=== PATIENT | female | born 1995 | race Two or more races ===

== ENCOUNTER → 2024-02-04 | Outpatient (CLI) | payer OTHER, MEDICAID, SELFPAY ==
[2024-02-03 15:26] LABS: HCG Qualitative,Urine Negative
--- NOTE | 2024-02-04 10:00 | XR_ITS ---
Examination: MRI abdomen with intravenous contrast. MRI abdomen without intravenous contrast. Date and time of exam: February 04, 2024 10:11 AM Indications: CT abdomen pelvis 11/17/2023 multiple enhancing liver lesions Technique: Multiple axial, sagittal and coronal sections of the abdomen obtained. Transverse images, TR 6020, TE 107. T1 weighted transverse images, TR 582, TE 9.5. T2-weighted sagittal images, TR 4000, TE 105. T2-weighted sagittal images, TR 4000, TE 5. Coronal images, TR 4210, TE 107. Axial and coronal images are obtained post 19 cc gadolinium Findings: Mildly hyperintense liver lesions which demonstrate uniform enhancement, on the postcontrast images, the largest lesions in the posterior right lobe liver measuring 21 mm, 18 mm an anterior left lobe of the liver 6 mm No pancreatic mass Spleen not enlarged No hydronephrosis Contracted gallbladder No ascites No abdominal lymphadenopathy Impression: Liver lesions as above, differential would include hepatic adenomas, areas of focal nodular hyperplasia, malignant lesions less likely but not excluded With this study as baseline, recommend 3-6 month follow-up MRI abdomen pelvis intravenous contrast
== END | disposition home or self-care (01) ==
PROVIDERS: PCP Family Medicine; Referring Provider Family Medicine; Visit Provider Family Medicine
DX: K76.9 Liver disease, unspecified (principal); Z32.00 Encounter for pregnancy test, result unknown
CPT/HCPCS: 74183; 81025; A9579

== ENCOUNTER → 2024-07-04 | Outpatient (CLI) | payer OTHER, MEDICAID, SELFPAY ==
[2024-07-03 16:43] LABS: HCG Qualitative,Urine Negative
--- NOTE | 2024-07-04 10:00 | XR_ITS ---
Examination: MRI abdomen , with intravenous contrast. Exam date and time: July 04, 2024 1121 hours Comparison February 04, 2024 INDICATIONS: Multiple liver lesions on MRI abdomen liver February 04, 2024 Technique: Multiple axial, sagittal and coronal images of the abdomen have been obtained with the Siemens high-resolution 1.5 Daisy MRI scanner. . Axial, sagittal and coronal images are obtained post intravenous injection 20 cc gadolinium. Findings: Stable enhancing multiple liver lesions No biliary tract dilatation No gallstones Spleen not enlarged No pancreatic mass No enhancing renal lesion No ascites Aorta normal size IMPRESSION: Stable enhancing multiple liver lesions, differential would include hepatic adenomas areas of focal nodular hyperplasia Recommend 6 month follow-up hepatic sonography
--- NOTE | 2024-07-04 10:30 | XR_ITS ---
Examination: MRI pelvis with intravenous contrast Exam date and time: July 04, 2024 1121 hours INDICATIONS: History multiple liver lesions on MRI abdomen February 04, 2024 TECHNIQUE AND FINDINGS: Multiple axial coronal sagittal MRI pelvis images post intravenous administration 20 cc gadolinium Anteverted uterus with significantly enlarged uterine fundus with at least 8 uterine body and uterine fundal masses, the largest 3 cm No pelvic lymphadenopathy No free fluid in the pelvis IMPRESSION: Multiple uterine areas of likely fibroid degeneration, recommend transabdominal transvaginal pelvic sonography follow-up
== END | disposition home or self-care (01) ==
PROVIDERS: PCP Family Medicine; Referring Provider Family Medicine; Visit Provider Family Medicine
DX: K76.9 Liver disease, unspecified (principal); Z32.00 Encounter for pregnancy test, result unknown
CPT/HCPCS: 72196; 74182; 81025; A9579